=== PATIENT | male | born 1950 | race African-American/Black ===

== ENCOUNTER 2017-10-15 08:18 | Inpatient (IN) | payer MEDICARE ==
[~2017-10-15] VITALS: Ht 175.3 cm; Wt 85.7 kg
[2017-10-15] MEDS ORDERED: ACETAMINOPHEN 325MG TABLET PO STA (08:49)
[2017-10-15] MEDS ORDERED: SODIUM CHLORIDE 0.9% 1,000 ML IV ONE (08:49)
[2017-10-15] MEDS ORDERED: IPRATROPIUM/ALBUTEROL 0.5-3(2.5)MG/3ML NEB HHN ONE (09:00)
[2017-10-15 09:15] LABS: HEMATOCRIT. 45.9 % (42.0-52.0); HEMOGLOBIN. 15.1 g/dL (14.0-18.0); MEAN CORPUSCULAR VOLUME 88.6 fL (80.0-94.0); MEAN PLATELET VOLUME 8.2 fl (7.4-10.4); PLATELET 242 x1000/uL (130-400); RED BLOOD CELL COUNT 5.19 mill/uL (4.7-6.1); RED CELL DISTRIBUTION WIDTH 13.3 % (11.6-14.6)
[2017-10-15 09:23] LABS: INR 1.1; PROTHROMBIN TIME 11.4 sec (9.4-11.6)
[2017-10-15 09:33] LABS: CARBON DIOXIDE 27 mEq/L (21-32); CHLORIDE 101 mEq/L (98-107); TROPONIN I 0.03 ng/mL (0.00-0.04)
[2017-10-15 09:42] LABS: PLATELET ESTIMATE NORMAL
[2017-10-15] MEDS ORDERED: CEFTRIAXONE 1 G PREMIX 50 ML IV ONE (11:30)
[2017-10-15] MEDS: AZITHROMYCIN 500 MG in DEXT 5% WATER 250 ML IV SCH ×3 (13:00→17:54)
[2017-10-15 18:00] VITALS: BP 174/96
[2017-10-15 18:13] VITALS: BP 174/96
[2017-10-15] MEDS ORDERED: VANCOMYCIN 1 G PREMIX 200 ML IV SCH (19:00)
[2017-10-15] MEDS ORDERED: ACETAMINOPHEN 650MG/20.3ML UDC GT PRN (19:00)
[2017-10-15] MEDS ORDERED: MAGNESIUM/ALUMINUM HYDROXIDE/SIMETHICONE 30ML UDC PO PRN (19:00)
[2017-10-15] MEDS ORDERED: DIPHENHYDRAMINE 50MG/ML VIAL IV PRN (19:00)
[2017-10-15] MEDS ORDERED: ONDANSETRON HCL 4MG/2ML VIAL IV PRN (19:00)
[2017-10-15] MEDS ORDERED: CLONIDINE 0.1MG TABLET PO PRN (19:00)
[2017-10-15] MEDS ORDERED: ACETAMINOPHEN 325MG TABLET PO PRN (19:00)
[2017-10-15] MEDS ORDERED: DOCUSATE SODIUM 100MG CAPSULE PO PRN (19:00)
[2017-10-15] MEDS ORDERED: HYDROCODONE/ACETAMINOPHEN 5/325MG TABLET PO PRN (19:00)
[2017-10-15] MEDS ORDERED: ACETAMINOPHEN 650MG SUPP PR PRN (19:00)
[2017-10-15] MEDS ORDERED: GUAIFENESIN 200MG/10ML SUGAR FREE UDC PO PRN (19:00)
[2017-10-15] MEDS ORDERED: IPRATROPIUM/ALBUTEROL 0.5-3(2.5)MG/3ML NEB INH PRN (19:00)
[2017-10-15 19:06] VITALS: BP 156/88
[2017-10-15 20:00] VITALS: BP 163/87
[2017-10-15] MEDS ORDERED: NA PHOS,M-B/NA PHOS,DI-BA ENEMA 118ML PR PRN (20:00)
[2017-10-15] MEDS: ENOXAPARIN 40MG/0.4ML SYR SUBCUT SCH (20:47)
[2017-10-15] MEDS: METHYLPREDNISOLONE SOD SUCC 125 MG/2 ML VIAL IV SCH (20:47)
[2017-10-15 21:52] LABS: TROPONIN I 0.08 ng/mL (0.00-0.04)
[2017-10-15] MEDS: PIPERACILLIN/TAZ 3.375G PREMIX 50 ML IV SCH (21:56)
[2017-10-15] MEDS ORDERED: VANCOMYCIN 1500MG in DEXTROSE 5% WATER 250ML IV NR (22:00)
[2017-10-16] VITALS: BP 138/72
[2017-10-16] MEDS: IPRATROPIUM/ALBUTEROL 0.5-3(2.5)MG/3ML NEB INH SCH ×4 (01:36→20:11)
[2017-10-16] MEDS: METHYLPREDNISOLONE SOD SUCC 125 MG/2 ML VIAL IV SCH ×3 (01:59→14:39)
[2017-10-16] MEDS: SODIUM CHLORIDE 0.9% INJ 3ML FLUSH IVF SCH ×4 (01:59→21:23)
[2017-10-16 04:00] VITALS: BP 118/80
[2017-10-16] MEDS: PIPERACILLIN/TAZ 3.375G PREMIX 50 ML IV SCH ×2 (05:10→14:39)
[2017-10-16 08:00] VITALS: BP 123/72
[2017-10-16 08:18] LABS: BASOPHILS % 0.5 % (0.0-2.0); HEMATOCRIT. 51.4 % (42.0-52.0); HEMOGLOBIN. 16.7 g/dL (14.0-18.0); LYMPHOCYTES % 12.2 % (20.0-50.0); MEAN CORPUSCULAR HEMOGLOBIN 29.2 pg (28.0-32.0); MEAN CORPUSCULAR VOLUME 89.6 fL (80.0-94.0); MEAN PLATELET VOLUME 9.5 fl (7.4-10.4); MONOCYTES % 1.7 % (2.0-8.0); NEUTROPHILS % 85.6 % (40.0-76.0); PLATELET 207 x1000/uL (130-400); RED BLOOD CELL COUNT 5.74 mill/uL (4.7-6.1); RED CELL DISTRIBUTION WIDTH 13.6 % (11.6-14.6)
[2017-10-16 08:52] LABS: CHLORIDE 100 mEq/L (98-107)
[2017-10-16 09:06] LABS: CARBON DIOXIDE 25 mEq/L (21-32); HDL CHOLESTEROL 32 mg/dL (40-59); LDL CHOLESTEROL 80 mg/dL (5-100); TROPONIN I 0.05 ng/mL (0.00-0.04)
[2017-10-16 09:07] LABS: CREATINE KINASE 2305 IU/L (39-308)
[2017-10-16 09:18] LABS: BG BASE EXCESS -2.8 mmol/L (-2.0-2.0); BG CARBOXYHEMOGLOBIN 0.9 % (0.5-1.5); BG DEOXYHEMOGLOBIN 12.9 % (0.0-5.0); BG FRACTION INSPIRED OXYGEN 21; BG HCO3 ACT 23.8 mmol/L (22.0-26.0); BG METHEMOGLOBIN 0.3 % (0.0-1.5); BG OXYGEN SATURATION 86.9 % (92.0-98.5); BG OXYHEMOGLOBIN 85.9 % (94.0-97.0); BG PCO2 48.1 mmHg (35.0-45.0); BG PH 7.313 (7.350-7.450); BG PO2 52.2 mmHg (75.0-100.0); BG SAMPLE SITE RIGHT RADIAL; BG TOTAL HEMOGLOBIN 15.5 g/dL (12.0-18.0); BG VENT MODE ROOM AIR
[2017-10-16] MEDS ORDERED: VANCOMYCIN 1 G PREMIX 200 ML IV SCH (10:00)
[2017-10-16 10:36] LABS: CLARITY URINE CLEAR (CLEAR); COLOR URINE YELLOW (YELLOW); KETONES URINE NEGATIVE (NEGATIVE); LEUKOCYTE ESTERASE URINE NEGATIVE (NEGATIVE); NITRITE URINE NEGATIVE (NEGATIVE); OCCULT BLOOD URINE NEGATIVE (NEGATIVE); PROTEIN URINE NEGATIVE (NEGATIVE); SPECIFIC GRAVITY URINE 1.016 (1.005-1.030); UROBILINOGEN URINE 0.2 E.U./dL (0.2-1.0)
[2017-10-16 11:01] LABS: *AMPHETAMINES SCREEN URINE NEGATIVE (NEGATIVE); *BARBITURATES SCREEN URINE NEGATIVE (NEGATIVE); *BENZODIAZEPINES SCREEN URINE NEGATIVE (NEGATIVE); *COCAINE SCREEN URINE NEGATIVE (NEGATIVE); CANNABINOID URINE SCREEN NEGATIVE (NEGATIVE); METHADONE URINE SCREEN NEGATIVE (NEGATIVE); OPIATES URINE SCREEN NEGATIVE (NEGATIVE); PHENCYCLIDINE URINE SCREEN NEGATIVE (NEGATIVE)
[2017-10-16 12:00] VITALS: BP 126/74
[2017-10-16] MEDS ORDERED: PIPERACILLIN/TAZ 3.375G PREMIX 50 ML IV SCH ×2 (15:00→21:00)
[2017-10-16 16:00] VITALS: BP 114/69
[2017-10-16] MEDS ORDERED: OSELTAMIVIR 75MG CAPSULE PO NR (16:44)
[2017-10-16] MEDS ORDERED: SODIUM CHLORIDE 0.9% 1,000 ML IV NR (16:44)
[2017-10-16] MEDS: PREDNISONE 20MG TABLET PO SCH (17:03)
[2017-10-16] MEDS: CEFTRIAXONE 2 G in DEXTROSE 5% WATER 50 ML IV SCH (17:34)
[2017-10-16] MEDS ORDERED: AZITHROMYCIN 500 MG in DEXT 5% WATER 250 ML IV SCH (19:00)
[2017-10-16 20:00] VITALS: BP 130/75
[2017-10-16] MEDS: ENOXAPARIN 40MG/0.4ML SYR SUBCUT SCH (20:05)
[2017-10-16] MEDS: OSELTAMIVIR 75MG CAPSULE PO SCH (20:05)
[2017-10-16] MEDS: BUDESONIDE 0.5MG/2ML NEB HHN SCH (20:11)
[2017-10-16] MEDS: AZITHROMYCIN 500 MG in SODIUM CHLORIDE 0.9% 250 ML IV SCH (21:23)
[2017-10-17] VITALS: BP 129/78
[2017-10-17] MEDS: IPRATROPIUM/ALBUTEROL 0.5-3(2.5)MG/3ML NEB INH SCH ×4 (00:43→21:11)
[2017-10-17 04:00] VITALS: BP 137/85
[2017-10-17] MEDS: SODIUM CHLORIDE 0.9% INJ 3ML FLUSH IVF SCH ×3 (07:07→21:11)
[2017-10-17 07:32] LABS: HEMATOCRIT. 44.8 % (42.0-52.0); HEMOGLOBIN. 14.5 g/dL (14.0-18.0); MEAN CORPUSCULAR HEMOGLOBIN 28.9 pg (28.0-32.0); MEAN CORPUSCULAR VOLUME 89.3 fL (80.0-94.0); MEAN PLATELET VOLUME 8.9 fl (7.4-10.4); PLATELET 239 x1000/uL (130-400); RED BLOOD CELL COUNT 5.01 mill/uL (4.7-6.1); RED CELL DISTRIBUTION WIDTH 13.5 % (11.6-14.6)
[2017-10-17 07:44] LABS: CARBON DIOXIDE 28 mEq/L (21-32); CHLORIDE 104 mEq/L (98-107)
[2017-10-17 07:49] LABS: CREATINE KINASE 1796 IU/L (39-308)
[2017-10-17 08:00] VITALS: BP 139/77
[2017-10-17] MEDS: OSELTAMIVIR 75MG CAPSULE PO SCH ×2 (09:28→20:48)
[2017-10-17] MEDS: PREDNISONE 20MG TABLET PO SCH ×2 (09:29→17:21)
[2017-10-17] MEDS: BUDESONIDE 0.5MG/2ML NEB HHN SCH ×2 (09:32→21:12)
[2017-10-17 12:00] VITALS: BP 138/71
[2017-10-17 12:57] LABS: HEPATITIS B SURFACE ANTIGEN NEGATIVE
[2017-10-17 13:24] LABS: HEPATITIS B CORE AB IGM NEGATIVE
[2017-10-17 13:26] LABS: HEPATITIS A AB IGM NEGATIVE (NEGATIVE)
[2017-10-17] MEDS: CEFTRIAXONE 2 G in DEXTROSE 5% WATER 50 ML IV SCH (17:22)
[2017-10-17 18:00] VITALS: BP 154/93
[2017-10-17 20:00] VITALS: BP 137/83
[2017-10-17] MEDS ORDERED: AZIT500T5 PO (20:16)
[2017-10-17] MEDS ORDERED: P20 PO (20:16)
[2017-10-17] MEDS ORDERED: PULM50 HHN (20:16)
[2017-10-17] MEDS ORDERED: TAM75 PO (20:16)
[2017-10-17] MEDS ORDERED: ALBU6.7H INH (20:16)
[2017-10-17] MEDS: AZITHROMYCIN 500 MG in SODIUM CHLORIDE 0.9% 250 ML IV SCH (20:48)
[2017-10-17] MEDS: ENOXAPARIN 40MG/0.4ML SYR SUBCUT SCH (20:49)
[2017-10-17 20:54] LABS: PLATELET ESTIMATE NORMAL
[2017-10-18] VITALS: BP 134/84
[2017-10-18] MEDS: IPRATROPIUM/ALBUTEROL 0.5-3(2.5)MG/3ML NEB INH SCH ×3 (01:46→16:45)
[2017-10-18 04:00] VITALS: BP 131/81
[2017-10-18] MEDS: SODIUM CHLORIDE 0.9% INJ 3ML FLUSH IVF SCH ×2 (06:00→17:14)
[2017-10-18 08:00] VITALS: BP 137/84
[2017-10-18] MEDS: BUDESONIDE 0.5MG/2ML NEB HHN SCH (08:29)
[2017-10-18] MEDS ORDERED: AZITHROMYCIN 500 MG TABLET PO SCH (09:00)
[2017-10-18] MEDS: PREDNISONE 20MG TABLET PO SCH (09:21)
[2017-10-18] MEDS: OSELTAMIVIR 75MG CAPSULE PO SCH ×2 (09:22→20:33)
[2017-10-18 12:00] VITALS: BP 126/69
[2017-10-18 16:00] VITALS: BP 158/85
[2017-10-18] MEDS: CEFTRIAXONE 2 G in DEXTROSE 5% WATER 50 ML IV SCH (17:14)
[2017-10-18 19:16] LABS: CHLORIDE 103 mEq/L (98-107)
[2017-10-18 19:25] LABS: CARBON DIOXIDE 29 mEq/L (21-32); CREATINE KINASE 321 IU/L (39-308)
[2017-10-18 19:29] LABS: BASOPHILS % 0.1 % (0.0-2.0); HEMATOCRIT. 42.8 % (42.0-52.0); HEMOGLOBIN. 14.1 g/dL (14.0-18.0); LYMPHOCYTES % 7.3 % (20.0-50.0); MEAN CORPUSCULAR HEMOGLOBIN 29.5 pg (28.0-32.0); MEAN CORPUSCULAR VOLUME 89.7 fL (80.0-94.0); MEAN PLATELET VOLUME 8.5 fl (7.4-10.4); MONOCYTES % 6.3 % (2.0-8.0); NEUTROPHILS % 86.3 % (40.0-76.0); PLATELET 238 x1000/uL (130-400); RED BLOOD CELL COUNT 4.78 mill/uL (4.7-6.1); RED CELL DISTRIBUTION WIDTH 13.7 % (11.6-14.6)
[2017-10-18] MEDS: ENOXAPARIN 40MG/0.4ML SYR SUBCUT SCH (20:33)
[2017-10-18 20:42] VITALS: BP 159/70
[2017-10-19] MEDS ORDERED: PREDNISONE 20MG TABLET PO SCH (09:00)
== END 2017-10-18 20:52 | disposition home or self-care (01) | DRG 871 ==
LOC: ER 08:44 → 5WST 11:33 → EDBEDREQ 11:42 → ENRESERV 15:29
PROVIDERS: ADMIT Family Medicine; ATTEND Family Medicine
DX: A41.9 Sepsis, unspecified organism (principal); J96.01 Acute respiratory failure with hypoxia; J09.X1 Influenza due to identified novel influenza A virus with pneumonia; J18.8 Other pneumonia, unspecified organism; M62.82 Rhabdomyolysis; J44.1 Chronic obstructive pulmonary disease with (acute) exacerbation; J44.0 Chronic obstructive pulmonary disease with (acute) lower respiratory infection; B18.2 Chronic viral hepatitis C; I10 Essential (primary) hypertension; F17.200 Nicotine dependence, unspecified, uncomplicated; R73.9 Hyperglycemia, unspecified; R74.0 Nonspecific elevation of levels of transaminase and lactic acid dehydrogenase [LDH]; Z60.2 Problems related to living alone
CPT/HCPCS: 36415; 36600; 71045; 80053; 80061; 80202; 80305; 81003; 82375; 82550; 82805; 83036; 83605; 83880; 84484; 85025; 85379; 85610; 86705; 86709; 86803; 87040; 87086; 87340; 87804; 93005; 94640; 94664; 96374; 99285; J0456; J0696; J1650; J2543; J2930; J3370; J7030; J7040; J7050; J7060; J7512; J7620; J7626

== ENCOUNTER 2025-02-01 08:59 | Inpatient (IN) | payer MEDICARE ==
[~2025-02-01] VITALS: Ht 177.8 cm; Wt 70.8 kg
[~2025-02-01 08:59] MED LIST: ALBU6.7H15 INH; AMLO10TA80 MT; ASCO-339 MT; ATOR-388 MT; CHOL400D7 MT; FERR-71 MT; HYDR12.54 MT; HYDR25TA78 MT; LEVE1000 MT; LOSA-20 MT; LOSA-413 MT; PANT40TA51; PULM50 HHN; SENN-371 MT; SULF1TAB48 MT
[2025-02-01 09:01] VITALS: O2SAT 99
[2025-02-01] MEDS: LEVETIRACETAM 500MG TABLET PO ONE (09:54)
[2025-02-01 10:01] LABS: BASOPHILS % 0.6 % (0.0-2.0); EOSINOPHILS % 2.9 % (0.0-5.0); LYMPHOCYTES % 34.6 % (20.0-50.0); MEAN CORPUSCULAR HEMOGLOBIN 28.8 pg (28.0-32.0); MEAN CORPUSCULAR VOLUME 90.1 fL (80.0-94.0); MEAN PLATELET VOLUME 6.8 fl (7.4-10.4); MONOCYTES % 13.8 % (2.0-8.0); NEUTROPHILS % 48.1 % (40.0-76.0); PLATELET 386 x1000/uL (130-400); RED CELL DISTRIBUTION WIDTH 17.8 % (11.6-14.6); WHITE BLOOD COUNT 6.9 x1000/uL (4.5-11.0)
[2025-02-01 10:12] LABS: CHLORIDE 98 mEq/L (98-107); POTASSIUM 3.8 mEq/L (3.5-5.1); SODIUM 136 mEq/L (136-145)
[2025-02-01 10:13] LABS: CALCIUM 9.3 mg/dL (8.7-10.4); CARBON DIOXIDE 29 mEq/L (21-32)
[2025-02-01 10:18] LABS: GLUCOSE 91 mg/dL (70-105); UREA NITROGEN BLOOD 13 mg/dL (9-23)
[2025-02-01 10:20] LABS: ALANINE AMINOTRANSFERASE 27 IU/L (10-49); ALBUMIN 4.3 g/dL (3.2-4.8); ASPARTATE AMINOTRANSFERASE 30 IU/L (<34); BILIRUBIN TOTAL 0.2 mg/dL (0.1-1.0); PROTEIN TOTAL 7.9 g/dL (6.0-8.3)
[2025-02-01 10:27] LABS: CREATININE 1.6 mg/dL (0.6-1.3)
[2025-02-01] MEDS ORDERED: ACETAMINOPHEN 325MG TABLET PO PRN (13:15)
[2025-02-01] MEDS ORDERED: CLONIDINE 0.1MG TABLET PO PRN (13:15)
[2025-02-01] MEDS ORDERED: GUAIFENESIN 200MG/10ML SUGAR FREE UDC PO PRN (13:15)
[2025-02-01] MEDS ORDERED: DOCUSATE SODIUM 100MG CAPSULE PO PRN (13:15)
[2025-02-01] MEDS ORDERED: MAGNESIUM/ALUMINUM HYDROXIDE/SIMETHICONE 30ML UDC PO PRN (13:15)
[2025-02-01] MEDS ORDERED: ONDANSETRON HCL 4MG/2ML INJ IV PRN (13:15)
[2025-02-01] MEDS: ENOXAPARIN 40MG/0.4ML SYR SUBCUT SCH (13:49)
[2025-02-01 13:52] VITALS: BP 128/74; PULSE 95; RESP 18; TEMP 36.6
[2025-02-01] MEDS ORDERED: ALBUTEROL 6.7GM HFA INHALER INH SCH (14:00)
[2025-02-01] MEDS ORDERED: LACO200T4 PO (14:11)
[2025-02-01] MEDS ORDERED: LEVE100023 PO (14:11)
[2025-02-01] MEDS ORDERED: LOSA50TA41 PO (14:11)
[2025-02-01] MEDS ORDERED: ATOR-2 PO (14:11)
[2025-02-01] MEDS ORDERED: FERR325T6 PO (14:14)
[2025-02-01] MEDS ORDERED: SENN-22 PO (14:14)
[2025-02-01] MEDS ORDERED: ASCO500T20 PO (14:14)
[2025-02-01] MEDS ORDERED: CHOL400D7 PO (14:17)
[2025-02-01] MEDS: ASCORBIC ACID 500 MG TABLET PO SCH (15:11)
[2025-02-01] MEDS: CHOLECALCIFEROL (D3) 1000 UNIT TABLET PO SCH (15:12)
[2025-02-01] MEDS: AMLODIPINE 10MG TABLET PO SCH (15:12)
[2025-02-01] MEDS: PANTOPRAZOLE 40MG DR TABLET PO SCH (15:12)
[2025-02-01] MEDS: LOSARTAN 50 MG TABLET PO SCH (15:12)
[2025-02-01 16:00] VITALS: BP 103/68; PULSE 80; RESP 18; TEMP 36.7; O2SAT 100
[2025-02-01 18:00] LABS: CLARITY URINE CLOUDY (CLEAR); COLOR URINE YELLOW (YELLOW); GLUCOSE URINE NEGATIVE (NEGATIVE); KETONES URINE NEGATIVE (NEGATIVE); LEUKOCYTE ESTERASE URINE 3+ (NEGATIVE); NITRITE URINE NEGATIVE (NEGATIVE); OCCULT BLOOD URINE 2+ (NEGATIVE); PH URINE 5.5 (4.5-8.0); PROTEIN URINE 2+ (NEGATIVE); SPECIFIC GRAVITY URINE 1.011 (1.005-1.030); UROBILINOGEN URINE 0.2 E.U./dL (0.2-1.0)
[2025-02-01] MEDS: FERROUS SULFATE 325MG TABLET PO SCH (18:00)
[2025-02-01 18:23] LABS: BACTERIA URINE 1+; YEAST URINE 1+
[2025-02-01 18:24] LABS: SQUAMOUS EPITHELIAL CELL URINE FEW /lpf (RARE/1+)
[2025-02-01 20:00] VITALS: BP 95/54; PULSE 83; RESP 20; TEMP 36.6; O2SAT 100
[2025-02-01 20:04] LABS: CREATINE KINASE MB FRACTION 0.9 ng/mL (0.5-3.6); TROPONIN I HIGH SENSITIVITY 11 ng/L (3.0-53)
[2025-02-01 20:05] LABS: CREATINE KINASE 35 IU/L (46-171)
[2025-02-01] MEDS: HYDRALAZINE HCL 25MG TABLET PO SCH (21:00)
[2025-02-01] MEDS: SENNOSIDES 8.6MG TABLET PO SCH (21:24)
[2025-02-01] MEDS: LEVETIRACETAM 500MG TABLET PO SCH (21:24)
[2025-02-01] MEDS: ATORVASTATIN CALCIUM 40MG TABLET PO SCH (21:24)
[2025-02-02] VITALS (10 sets, daily range): BP systolic 93–106; BP diastolic 48–59; PULSE 78–90; RESP 12–19; TEMP 36.6–36.9; O2SAT 96–100
[2025-02-02 07:52] LABS: BASOPHILS % 0.4 % (0.0-2.0); DIFFERENTIAL COMMENT 0; EOSINOPHILS % 6.1 % (0.0-5.0); HEMATOCRIT. 27.4 % (42.0-52.0); HEMOGLOBIN. 8.7 g/dL (14.0-18.0); LYMPHOCYTES % 38.3 % (20.0-50.0); MEAN CORPUSCULAR HEMOGLOBIN 28.7 pg (28.0-32.0); MEAN PLATELET VOLUME 7.2 fl (7.4-10.4); MONOCYTES % 13.4 % (2.0-8.0); NEUTROPHILS % 41.8 % (40.0-76.0); PLATELET 391 x1000/uL (130-400); RED BLOOD CELL COUNT 3.04 mill/uL (4.7-6.1); RED CELL DISTRIBUTION WIDTH 17.5 % (11.6-14.6); WHITE BLOOD COUNT 5.7 x1000/uL (4.5-11.0)
[2025-02-02] MEDS: BUDESONIDE 0.5MG/2ML NEB HHN SCH (08:20)
[2025-02-02] MEDS: ALBUTEROL (0.083%) 2.5MG/3ML NEB HHN SCH (08:20)
[2025-02-02 08:32] LABS: CHLORIDE 99 mEq/L (98-107); POTASSIUM 4.1 mEq/L (3.5-5.1); SODIUM 136 mEq/L (136-145)
[2025-02-02 08:33] LABS: CALCIUM 9.5 mg/dL (8.7-10.4); CARBON DIOXIDE 29 mEq/L (21-32)
[2025-02-02 08:37] LABS: TRIGLYCERIDE 86 mg/dL (0-150)
[2025-02-02 08:38] LABS: GLUCOSE 91 mg/dL (70-105); UREA NITROGEN BLOOD 26 mg/dL (9-23)
[2025-02-02 08:39] LABS: ALANINE AMINOTRANSFERASE 28 IU/L (10-49); ALBUMIN 3.9 g/dL (3.2-4.8); LDL CHOLESTEROL 47 mg/dL (5-100); T4 FREE 1.19 ng/dL (0.89-1.76); THYROID STIMULATING HORMONE 3.28 uIU/mL (0.55-4.78)
[2025-02-02 08:40] LABS: ASPARTATE AMINOTRANSFERASE 31 IU/L (<34); BILIRUBIN DIRECT < 0.1 mg/dL (<=3.0); BILIRUBIN TOTAL 0.2 mg/dL (0.1-1.0); CHOLESTEROL 106 mg/dL (<200); HDL CHOLESTEROL 35 mg/dL (>55); PROTEIN TOTAL 7.1 g/dL (6.0-8.3)
[2025-02-02 08:52] LABS: CREATININE 2.6 mg/dL (0.6-1.3)
[2025-02-02] MEDS ORDERED: CHOLECALCIFEROL MT SCH (09:00)
[2025-02-02] MEDS ORDERED: MEDICATION NOT ON FORMULARY EA (Ascorbate Calcium (Vitamin C) 1 TAB) MT SCH (09:00)
[2025-02-02] MEDS: ACETAMINOPHEN 325MG TABLET PO PRN (22:31)
[2025-02-03] VITALS (9 sets, daily range): BP systolic 90–106; BP diastolic 54–67; PULSE 75–94; RESP 13–20; TEMP 36.2–38.4; O2SAT 93–100
[2025-02-04] VITALS (8 sets, daily range): BP systolic 95–125; BP diastolic 55–68; PULSE 72–100; RESP 17–20; TEMP 36.4–38.4; O2SAT 96–100
[2025-02-04 06:31] LABS: POTASSIUM 3.7 mEq/L (3.5-5.1)
[2025-02-04 06:32] LABS: CALCIUM 9.2 mg/dL (8.7-10.4)
[2025-02-04 06:43] LABS: CREATININE 3.4 mg/dL (0.6-1.3)
[2025-02-04 07:18] LABS: HEMATOCRIT. 24.8 % (42.0-52.0); MEAN CORPUSCULAR HEMOGLOBIN 29.1 pg (28.0-32.0); MEAN CORPUSCULAR HGB CONC 32.2 g/dL (31.0-37.0); MEAN CORPUSCULAR VOLUME 90.4 fL (80.0-94.0); MEAN PLATELET VOLUME 7.4 fl (7.4-10.4); PLATELET 329 x1000/uL (130-400); RED BLOOD CELL COUNT 2.74 mill/uL (4.7-6.1); RED CELL DISTRIBUTION WIDTH 16.3 % (11.6-14.6); WHITE BLOOD COUNT 6.2 x1000/uL (4.5-11.0)
[2025-02-04 07:29] LABS: DIFFERENTIAL COMMENT 1
[2025-02-04] MEDS: IPRATROPIUM/ALBUTEROL 0.5-3(2.5)MG/3ML NEB HHN PRN (12:43)
[2025-02-04 16:22] LABS: PLATELET ESTIMATE NORMAL
== END 2025-02-04 14:45 | disposition home or self-care (01) | DRG 698 ==
LOC: ER 08:59 → EDBEDREQ 09:16 → 6WST 10:00 → EDBEDREQ 10:02 → EDBEDREQSVC 10:03
PROVIDERS: ADMIT Internal Medicine; ATTEND Internal Medicine
PROC: 5A1D70Z Performance of Urinary Filtration, Intermittent, Less than 6 Hours Per Day (ICD-10-PCS; principal; 2025-02-04)
DX: T83.032A Leakage of nephrostomy catheter, initial encounter (principal); N17.0 Acute kidney failure with tubular necrosis; N18.6 End stage renal disease; N13.30 Unspecified hydronephrosis; I12.0 Hypertensive chronic kidney disease with stage 5 chronic kidney disease or end stage renal disease; T83.012A Breakdown (mechanical) of nephrostomy catheter, initial encounter; E11.22 Type 2 diabetes mellitus with diabetic chronic kidney disease; Z99.2 Dependence on renal dialysis; E78.5 Hyperlipidemia, unspecified; K57.30 Diverticulosis of large intestine without perforation or abscess without bleeding; R31.9 Hematuria, unspecified; N13.9 Obstructive and reflux uropathy, unspecified; B19.20 Unspecified viral hepatitis C without hepatic coma; D50.9 Iron deficiency anemia, unspecified; J44.9 Chronic obstructive pulmonary disease, unspecified; Y83.8 Other surgical procedures as the cause of abnormal reaction of the patient, or of later complication, without mention of misadventure at the time of the procedure; Y82.8 Other medical devices associated with adverse incidents; Y92.89 Other specified places as the place of occurrence of the external cause; Z79.899 Other long term (current) drug therapy; Z99.81 Dependence on supplemental oxygen
CPT/HCPCS: 36415; 74176; 80048; 80053; 80061; 80076; 81003; 82550; 82553; 84439; 84443; 84484; 85025; 90935; 94070; 94640; 94664; 99285; J1650; J7626

== ENCOUNTER 2025-05-17 15:41 | Emergency (ER) | payer MEDICARE ==
[~2025-05-17] VITALS: Ht 172.7 cm; Wt 73.0 kg
[~2025-05-17 15:41] MED LIST changes: -ALBU6.7H15 INH; -AMLO10TA80 MT; -ASCO-339 MT; +ASCO500T20 PO; +ATOR-2 PO; -ATOR-388 MT; -CHOL400D7 MT; +CHOL400D7 PO; -FERR-71 MT; +FERR325T6 PO; -HYDR12.54 MT; -HYDR25TA78 MT; +LACO200T4 PO; -LEVE1000 MT; +LEVE100023 PO; -LOSA-20 MT; -LOSA-413 MT; +LOSA50TA41 PO; -PANT40TA51; -PULM50 HHN; +SENN-22 PO; -SENN-371 MT
[2025-05-17 15:46] VITALS: O2SAT 100
[2025-05-17 17:23] LABS: BASOPHILS % 0.7 % (0.0-2.0); EOSINOPHILS % 2.4 % (0.0-5.0); HEMATOCRIT. 44.7 % (42.0-52.0); HEMOGLOBIN. 14.1 g/dL (14.0-18.0); LYMPHOCYTES % 30.7 % (20.0-50.0); MEAN PLATELET VOLUME 7.4 fl (7.4-10.4); MONOCYTES % 9.6 % (2.0-8.0); NEUTROPHILS % 56.6 % (40.0-76.0); PLATELET 227 x1000/uL (130-400); RED BLOOD CELL COUNT 4.93 mill/uL (4.7-6.1); RED CELL DISTRIBUTION WIDTH 14.8 % (11.6-14.6)
[2025-05-17 17:34] LABS: UREA NITROGEN BLOOD 24 mg/dL (9-23)
[2025-05-17 17:45] LABS: CREATININE 2.3 mg/dL (0.6-1.3)
[2025-05-17 18:51] VITALS: BP 133/65; PULSE 68; RESP 16; TEMP 36.8; O2SAT 100
== END 2025-05-17 18:52 | disposition home or self-care (01) ==
LOC: ER 15:41
DX: R53.1 Weakness (principal); J44.9 Chronic obstructive pulmonary disease, unspecified; E11.22 Type 2 diabetes mellitus with diabetic chronic kidney disease; I12.0 Hypertensive chronic kidney disease with stage 5 chronic kidney disease or end stage renal disease; N18.6 End stage renal disease; Z79.899 Other long term (current) drug therapy; Z99.2 Dependence on renal dialysis
CPT/HCPCS: 36415; 80048; 83735; 85025; 93005; 99284; A4606

== ENCOUNTER 2025-09-06 20:01 | Emergency (ER) | payer MEDICARE ==
[~2025-09-06] VITALS: Ht 165.1 cm; Wt 66.0 kg
[2025-09-06 20:15] VITALS: O2SAT 98
[2025-09-06 21:10] LABS: TROPONIN I HIGH SENSITIVITY 10 ng/L (3.0-53); UREA NITROGEN BLOOD 17 mg/dL (9-23)
[2025-09-06 21:11] LABS: ASPARTATE AMINOTRANSFERASE 49 IU/L (<34)
[2025-09-06 21:12] LABS: BILIRUBIN DIRECT 0.2 mg/dL (<=3.0); BILIRUBIN TOTAL 0.7 mg/dL (0.1-1.0); PROTEIN TOTAL 8.3 g/dL (6.0-8.3)
[2025-09-06 21:32] LABS: CREATININE 3.1 mg/dL (0.6-1.3)
[2025-09-06 21:46] LABS: CLARITY URINE TURBID (CLEAR); COLOR URINE DARK YELLOW (YELLOW); GLUCOSE URINE NEGATIVE (NEGATIVE); KETONES URINE TRACE (NEGATIVE); LEUKOCYTE ESTERASE URINE 3+ (NEGATIVE); NITRITE URINE NEGATIVE (NEGATIVE); OCCULT BLOOD URINE 3+ (NEGATIVE); PH URINE 5.0 (4.5-8.0); PROTEIN URINE 3+ (NEGATIVE); SPECIFIC GRAVITY URINE 1.022 (1.005-1.030); UROBILINOGEN URINE 1.0 E.U./dL (0.2-1.0)
[2025-09-06] MEDS: POLYETHYLENE GLYCOL 3350 (17GM) 1 DOSE PACK PO ONE (22:14)
[2025-09-06 22:23] LABS: WBC URINE TNTC /hpf (0-2)
[2025-09-06 22:24] LABS: BACTERIA URINE 1+; SQUAMOUS EPITHELIAL CELL URINE RARE /lpf (RARE/1+)
[2025-09-06 22:25] LABS: MUCUS URINE 1+ /lpf (NONE/TRACE); YEAST URINE 2+
[2025-09-06 22:37] LABS: HEMATOCRIT. 41.5 % (42.0-52.0); HEMOGLOBIN. 13.3 g/dL (14.0-18.0); MEAN PLATELET VOLUME 7.5 fl (7.4-10.4); PLATELET 280 x1000/uL (130-400); RED BLOOD CELL COUNT 4.59 mill/uL (4.7-6.1); RED CELL DISTRIBUTION WIDTH 16.3 % (11.6-14.6)
[2025-09-06] MEDS: NA PHOS,M-B/NA PHOS,DI-BA ENEMA 118ML PR ONE (22:48)
[2025-09-06 22:49] LABS: TROPONIN I HIGH SENSITIVITY 12 ng/L (3.0-53)
[2025-09-06] MEDS: ONDANSETRON HCL 4MG/2ML INJ IV ONE (22:49)
[2025-09-06 23:09] LABS: BAND% 1.0 % (1.0-6.0); LYMPHOCYTES % MANUAL 8.0 % (20.0-50.0); MONOCYTES % MANUAL 7.0 % (2.0-8.0); NEUTROPHILS % MANUAL 84.0 % (45.0-75.0); PLATELET ESTIMATE NORMAL
[2025-09-07] MEDS: CEFTRIAXONE 2GM/50ML 50 ML IV SCH (00:10)
[2025-09-07] MEDS ORDERED: FEO PR (02:20)
[2025-09-07] MEDS ORDERED: POLY17PO3 MT (02:20)
[2025-09-07 02:32] VITALS: BP 128/81; PULSE 89; RESP 19; TEMP 37; O2SAT 98
== END 2025-09-07 03:01 | disposition home or self-care (01) ==
LOC: ER 20:01 → CMPBEDREQ 09-07 07:18
DX: K59.00 Constipation, unspecified (principal); J44.9 Chronic obstructive pulmonary disease, unspecified; E11.22 Type 2 diabetes mellitus with diabetic chronic kidney disease; I12.0 Hypertensive chronic kidney disease with stage 5 chronic kidney disease or end stage renal disease; N18.6 End stage renal disease; Z99.81 Dependence on supplemental oxygen; Z99.2 Dependence on renal dialysis; Z79.899 Other long term (current) drug therapy
CPT/HCPCS: 99285; 74176; 96375; 80076; 80048; 81003; 83880; 83690; 85025; 87040; 87086; 84484; 36415; 93005; 96365; 96366; J2405; J0696